=== PATIENT | male | born 1990 | race Caucasian/White ===

== ENCOUNTER 2021-03-03 02:24 | Emergency (ER) | END 2021-03-03 06:11 | disposition home or self-care (01) | LOC: ERS 02:24 | DX: F10.129 Alcohol abuse with intoxication, unspecified (principal); F17.210 Nicotine dependence, cigarettes, uncomplicated; F17.220 Nicotine dependence, chewing tobacco, uncomplicated | CPT/HCPCS: 36416; 99285 ==

== ENCOUNTER 2024-05-10 10:45 | Emergency (ER) | payer BC ==
[2024-05-10] MEDS ORDERED: fentaNYL 50 mcg/mL 1 mL Vial ONE ×2 (12:59→13:51)
[2024-05-10] MEDS ORDERED: PROPOFOL 0 ML ONE (13:29)
[2024-05-10] MEDS ORDERED: PROPOFOL 20 ML ONE ×3 (13:57→14:28)
== END 2024-05-10 16:45 | disposition home or self-care (01) ==
LOC: ERS 10:45
DX: S42.252A Displaced fracture of greater tuberosity of left humerus, initial encounter for closed fracture (principal); Y04.0XXA Assault by unarmed brawl or fight, initial encounter
CPT/HCPCS: 23665; 96374; 96375; 96376; 99291; J2704; J3010

== ENCOUNTER 2025-01-22 14:07 | Emergency (ER) | payer BC | END 2025-01-22 14:52 | LOC: ERS 14:07 → EEVIPCON 14:07 → ERS 14:52 | DX: Z02.89 Encounter for other administrative examinations (principal); F10.129 Alcohol abuse with intoxication, unspecified; F17.210 Nicotine dependence, cigarettes, uncomplicated; F17.220 Nicotine dependence, chewing tobacco, uncomplicated; Z55.6 Problems related to health literacy | CPT/HCPCS: 36416; 99283 ==